=== PATIENT | male | born 1990 | race Caucasian/White ===

== ENCOUNTER 2021-02-10 19:43 | Inpatient (IN) | payer MEDICAID, SELFPAY ==
[2021-02-10 19:44] VITALS: BP 109/93; PULSE 96; RESP 18; TEMP 35.4; O2SAT 96; BMI 28.3
--- NOTE | 2021-02-10 20:43 | ED.VIS.GEN ---
History of Present Illness Chief Complaint: Substance Abuse Informant: Patient Onset: Month(s) Context: Sudden Onset Timing: Continuous Quality: Daily heroin and fentanyl use and alcohol use weekly Location: Not applicable Current Severity: Moderate Maximum Severity: Moderate Worsened by: Nothing Relieved by: Nothing Associated Symptoms: No withdrawal symptoms presently Narrative: Is a 30-year-old male with history of opiate dependency. He was in a rehab program last year. He states he was sober for 8 months. He resumed using. He snorts heroin and fentanyl. He also drinks 3 times a week. He states a normal day is 3 mixed drinks can have as much as a pint. He denies history of hepatitis or HIV. He does pick at his skin. He presently denies headache, visual, ocular auditory symptoms. No trouble with speech or swallowing. He denies cardiac respiratory symptoms. He denies abdominal pain, nausea, vomiting or diarrhea. He states he last used this afternoon at 1500. Prior similar symptoms: Yes Recent Illness/Hospitalization: No - Past Medical History (1) Opiate dependence Status: Acute (2) Alcohol use Status: Acute Past Medical History - Allergies and Home Meds Allergies/Adverse Reactions: Allergies No Known Allergies Allergy (Verified 02/10/21 19:45) Prior records reviewed: No Surgical History: no surgical history Lives: Alone Smoking Status: Current every day smoker Alcohol: Heavy Drugs: Heroin Review of Systems General: Denies: Chills, Fever, Sweats Eyes: Denies: Visual changes - bilaterally, Diplopia ENT: Denies: Rhinorrhea, Sore throat Cardiovascular: Denies: Chest pain, Palpitations Respiratory: Denies: Dyspnea, Cough, Dyspnea on exertion Gastrointestinal: Denies: Abdominal pain, Nausea, Vomiting, Diarrhea, Melena, Hematochezia Genitourinary: Denies: Dysuria, Hematuria, Frequency Musculoskeletal: Denies: Back pain, Extremity Pain Skin: Reports: Rash, Wounds - Due to picking his skin. Neurological: Denies: Headache, Weakness, Numbness Psych: Reports: Depression. Denies: Suicidal thoughts Allergy: Denies: Uticaria, Swelling of the mouth Physical Exam Vital Signs/Narrative: Vital Signs Temp Pulse Resp BP Pulse Ox 02/10/21 19:44 95.8 F L 96 18 109/93 H 96 Inital Vital Signs reviewed: Yes General: Well nourished, Well developed, No Acute Distress Head: Normocephalic, Atraumatic Eyes: Perrl, EOMI. Negative for: Pale conjunctiva ENT: Moist mucous membranes, No rhinorrhea Neck: Supple, Nontender, No lymphadenopathy, No JVD Cardiovascular: Regular rate, Regular rhythm, No murmurs, Normal S1, Normal S2 Respiratory: No distress, CTA bilaterally, Chest nontender Abdomen: Soft, Nontender, Nondistended, Normal bowel sounds Back: Nontender, Normal Inspection Extremities: Nontender, No edema Skin: Normal color, Rash - Pickers syndrome Neurological: Alert, Oriented x3, Cranial nerves II-XII grossly intact, Normal Strength, Normal Sensation Psychological: Depressed Diagnostic/Tx/Re-eval - Medical Decision Making Labs were obtained for admission for detox. The case was discussed with the admitting hospitalist Dr. Sarahi Aguila. She will follow the lab results. Full admit [facility] ED Disposition - Plan for ED Patient: Disposition: [facility] Care [facility] Diagnosis: Heroin use disorder, moderate, dependence, Alcohol abuse
--- NOTE | 2021-02-10 21:11 | ED.RN ---
CALLED 180 TO ADVISE OF A RAMP ADMIT
[2021-02-10 21:26] LABS: Amphetamine Urine VISTA POSITIVE (<1000 ng/mL); Barbiturate Urine VISTA NEGATIVE (< 200 ng/mL); Benzodiazepine Urine VISTA NEGATIVE (< 200 ng/mL); Cocaine Urine VISTA NEGATIVE (< 300 ng/mL); Ecstacy Urine VISTA POSITIVE (< 500 ng/mL); Methadone Urine VISTA NEGATIVE (< 300 ng/mL); PCP Urine VISTA NEGATIVE (< 25 ng/mL); THC Urine VISTA POSITIVE (< 50 ng/mL); Vista UDS pH Range 5
[2021-02-10 21:31] LABS: AST(SGOT) 38 U/L (15-37); Alanine Aminotransfer ALT/SGPT 59 U/L (16-61); Albumin, Serum 3.5 g/dL (3.2-5.0); Alkaline Phosphatase 97 U/L (45-117); Anion Gap 5 (5-15); BUN 22 mg/dL (7-18); BUN/Creat Ratio 24.1 RATIO (10-20); Calcium,Total 8.1 mg/dL (8.5-10.1); Chloride 103 mmol/L (98-107); Creatinine, Serum 0.91 mg/dL (0.70-1.30); EST Glomerular Filtration Rate 102 mL/min (>60); Est Glom Filt Rate - Afr Amer 123 mL/min (>60); Estimated Creatinine Clearance 116.54 ml/min; Globulin 3.5 g/dL (2.2-4.2); Glucose 112 mg/dL (74-106); Potassium 3.5 mmol/L (3.5-5.1); Sodium Level 137 mmol/L (136-145)
--- NOTE | 2021-02-10 21:34 | PCM.HP.STD ---
Problem List (1) Opiate dependence Status: Acute (2) Bipolar disorder Status: Chronic (3) Tobacco abuse Status: Chronic (4) Alcohol abuse Status: Chronic History of Present Illness Date of Admission: 02/10/21 Chief Complaint: Desire for detoxification from alcohol and opioids The patient is a 30 year old M presents today with desire to detox from heroin and alcohol. Patient states that he typically uses heroin 1 to 2 g a day but also occasionally uses meth. Patient reports that he is not a daily drinker but he does drink 3 to 4 days a week up to a pint of liquor. Patient is also a 1 pack/day smoker. Patient denies IV drug use stating that he snorts heroin. Patient reports his last heroin use at approximately 3 PM today. Patient denies fever, chills, shortness of breath, chest pain. Patient reports feeling depressed patient denies other medical history. Past Medical History Past Medical History (Chronic Problems): Chronic Problems Alcohol abuse (Chronic) Bipolar disorder (Chronic) Tobacco abuse (Chronic) Allergies No Known Allergies Allergy (Verified 02/10/21 19:45) Home Medications: Ambulatory Orders Medication Instructions Recorded Duloxetine Hcl [Cymbalta] 60 mg PO DAILY 02/10/21 Lurasidone HCl [Latuda] 20 mg PO DAILY 02/10/21 Surgical History: no surgical history Psychiatric History: Bipolar Lives: Alone Smoking Status: Current every day smoker Alcohol: Heavy Drugs: Heroin - *Family History Maternal History Items: Hypertension Paternal History Items: Hypertension Review of Systems Constitutional: Reports: Fatigue. Denies: Chills, Fever, Weight Change HEENT: Denies: Head Aches, Sinus Congestion, Sinus Drainage Cardiovascular: Denies: Chest Pain, Palpitations Respiratory: Denies: Cough, Shortness of breath at rest, Sputum production Gastrointestinal: Denies: Abdominal Pain, Nausea, Vomiting Genitourinary: Denies: Dysuria Musculoskeletal: Denies: Joint Pain, Joint Tenderness Skin: Reports: - - Multiple scabbed areas to face and arms and in various stages of healing.. Denies: Rash, Wounds Neurological: Denies: Numbness, Tingling, Focal weakness Psychiatric: Reports: Depression. Denies: Anxiety, Homicidal Ideations, Suicidal Ideations Hematologic/ Lymphatic: Denies: Easy Bruising, Easy Bleeding VTE Information - Inpt Only VTE Present on Admission: No VTE Mechan Device Prophylaxis: None VTE Pharm Prophylaxis ordered?: No Patient Problems: Active and Suspected Problems Opiate dependence (Acute) Heroin use disorder, moderate, dependence (Acute) - Physical Exam Vitals/I&O's: Vital Signs Temp Pulse Resp BP Pulse Ox 95.8 F L 96 18 109/93 H 96 02/10/21 19:44 02/10/21 19:44 02/10/21 19:44 02/10/21 19:44 02/10/21 19:44 Oxygen Delivery Method Room Air Weight: 192 lb 0.362 oz Body Mass Index (BMI) 28.3 General: Alert, Oriented x3, Lethargic HEENT: Atraumatic, PERRLA, EOMI, Normocephalic Neck: Supple, No JVD, Negative Carotid Bruits Lungs: Clear to auscultation, Normal air movement Cardiovascular: Regular rate, Regular Rhythm, Normal S1, Normal S2, No murmurs Abdomen: Bowel Sounds Present, Soft, Non Tender Extremities: No edema, Capillary Refill Less than 3 Seconds Skin: No rashes, Ulcer/ Wound - Small scabbed areas to face in various stages of healing Musculoskeletal: No Tenderness to Palpation of Joints or Extremities Neurological: Cranial nerves II-XII grossly intact Psych/Mental Status: Flat Affect Laboratory Results 02/10/21 20:52: Urine Opiates Screen NEGATIVE, Urine Methadone Screen NEGATIVE, Ur Barbiturates Screen NEGATIVE, Ur Phencyclidine Scrn NEGATIVE, Ur Amphetamines Screen POSITIVE H, U Methamphetamin-MDMA POSITIVE H, U Benzodiazepines Scrn NEGATIVE, Urine Cocaine Screen NEGATIVE, U Cannabinoids Screen POSITIVE H, Ur Drug Screen Comment 02/10/21 21:02: Sodium 137, Potassium 3.5, Chloride 103, Carbon Dioxide 29.0, Anion Gap 5, BUN 22 H, Creatinine 0.91, Estim Creat Clear Calc 116.54, Est GFR (MDRD) Af Amer 123, Est GFR (MDRD) Non-Af 102, BUN/Creatinine Ratio 24.1 H, Glucose 112 H, Calcium 8.1 L, Total Bilirubin 0.50, AST 38 H, ALT 59, Alkaline Phosphatase 97, Total Protein 7.0, Albumin 3.5, Globulin 3.5, Albumin/Globulin Ratio 1.0 02/10/21 21:02: Ethyl Alcohol Pending Assessment/Plan All Active Problems Opiate dependence (Acute) Heroin use disorder, moderate, dependence (Acute) 1. Opioid and alcohol abuse-desire for detoxification -Will initiate patient on buprenorphine and phenobarbital taper. -Supportive medications also ordered to assist with symptoms of withdrawal. -Admit to [facility] as part of RAMP detoxification program -Due to chronic alcohol use will check magnesium and phosphorus level -Thiamine, folic acid, and multivitamin ordered due to chronic alcohol use 2. Bipolar disorder -Untreated, [employer] consulted 3. Tobacco abuse -1 pack/day smoker -NicoDerm transdermal patch ordered daily DVT prophylaxis-not indicated This patient was seen by Suzanne Dye NP-C under the supervision of Dr. Aguila
[2021-02-10 22:13] VITALS: BP 109/93; PULSE 96; RESP 18; TEMP 35.4; O2SAT 96
[2021-02-10 22:26] VITALS: BP 102/59; PULSE 81; RESP 18; TEMP 36.5; O2SAT 99
[2021-02-10 22:27] VITALS: BMI 28.4
[2021-02-10 22:38] VITALS: BMI 28.4
[2021-02-10 22:38] LABS: Magnesium 2.5 mg/dL (1.6-2.6)
[2021-02-10] MEDS: Lactated Ringers 1,000 ML 125 ML IV (23:00)
[2021-02-10] MEDS: Ondansetron 8 MG Tablet PO (23:03)
[2021-02-10] MEDS: Ibuprofen 600 MG Tablet PO (23:03)
[2021-02-10] MEDS: Phenobarbital 32.4 MG Tablet 97.2 MG PO (23:04)
[2021-02-10] MEDS: traZODone 100 MG Tablet PO (23:04)
[2021-02-10] MEDS: Methocarbamol 750 MG Tablet 1500 MG PO (23:04)
[2021-02-10] MEDS: hydrOXYzine PAM 25 MG Capsule 50 MG PO (23:05)
[2021-02-10 23:09] LABS: HIV - WCH Non-Reactive (Nonreactive)
[2021-02-11 02:45] VITALS: BP 96/60; PULSE 88; RESP 16; TEMP 37; O2SAT 96
[2021-02-11] MEDS: Phenobarbital 32.4 MG Tablet 97.2 MG PO ×4 (02:54→16:00)
[2021-02-11 06:17] VITALS: BP 118/76; PULSE 85; RESP 16; TEMP 36.7; O2SAT 94
[2021-02-11] MEDS: Dicyclomine 10 MG Capsule 20 MG PO ×2 (06:36→16:00)
[2021-02-11] MEDS: Methocarbamol 750 MG Tablet 1500 MG PO ×2 (06:36→16:01)
[2021-02-11] MEDS: hydrOXYzine PAM 25 MG Capsule 50 MG PO ×2 (06:36→16:00)
[2021-02-11] MEDS: Buprenorphine HCl 2 MG TAB.SUBL SL ×3 (06:36→21:33)
[2021-02-11 07:07] VITALS: O2SAT 95
[2021-02-11 07:11] LABS: Absolute Lymphocyte Count 0.97 X10^3/uL (0.83-4.51); Absolute Neutrophil Count 2.5 X10^3/uL (2.0-7.7); Basophil# 0.03 X10^3/uL; Basophil% 0.6 % (0-1); Eosinophil# 0.34 X10^3/uL; Eosinophils% 7.4 % (0-5); Hematocrit 39.5 % (40-54); Hemoglobin 12.8 g/dL (13.0-16.5); Lymphocyte # 0.97 X10^3/ul (4.0); Mean Corp Hgb Conc 32.4 g/dL (32-36); Mean Corpuscular Hgb 31.1 pg (27.0-32.0); Mean Corpuscular Volume 95.9 fL (80-94); Mean Platelet Vol. 8.4 fl (6.2-12.0); Monocyte# 0.76 X10^3/uL; Monocyte% 16.5 % (0-10); NRBC Flagged by Analyzer 0 % (0-5); Neutrophil % 54.1 % (47-70); Platelet Count 295 K/mm3 (150-450); RBC Distribution Width CV 12.6 % (11.6-14.6); RBC Distribution Width SD 44.8 fl (35.1-43.9); Red Blood Count 4.12 M/mm3 (4.6-6.2); White Blood Count 4.6 K/mm3 (4.4-11.0)
[2021-02-11 07:44] LABS: ALB/GLOB Ratio 0.9 RATIO (0.9-2.4); AST(SGOT) 33 U/L (15-37); Alanine Aminotransfer ALT/SGPT 49 U/L (16-61); Albumin, Serum 3.1 g/dL (3.2-5.0); Alkaline Phosphatase 89 U/L (45-117); Anion Gap 6 (5-15); BUN 15 mg/dL (7-18); BUN/Creat Ratio 21.3 RATIO (10-20); Chloride 105 mmol/L (98-107); EST Glomerular Filtration Rate 137 mL/min (>60); Est Glom Filt Rate - Afr Amer 166 mL/min (>60); Globulin 3.3 g/dL (2.2-4.2); Glucose 89 mg/dL (74-106); Potassium 3.1 mmol/L (3.5-5.1); Protein, Total 6.4 g/dL (6.4-8.2); Sodium Level 140 mmol/L (136-145)
--- NOTE | 2021-02-11 09:35 | PCM.PROGNOTE ---
Patient Problems: Active and Suspected Problems Opiate dependence (Acute) Heroin use disorder, moderate, dependence (Acute) Subjective: Patient seen and examined. Drowsy during assessment. Denies significant withdrawal symptoms. - Physical Exam Vitals/I&O's: Vital Signs Temp Pulse Resp BP Pulse Ox 98.1 F 85 16 118/76 95 02/11/21 06:17 02/11/21 06:17 02/11/21 06:17 02/11/21 06:17 02/11/21 07:07 Oxygen Delivery Method Room Air Weight: 192 lb 7.417 oz Body Mass Index (BMI) 28.4 Intake and Output for Last 24 Hours 02/09/21 02/10/21 02/11/21 23:59 23:59 23:59 Intake Total 983.33 / 983.33 Balance 983.33 / 983.33 General: Cooperative, No apparent distress, - - Drowsy HEENT: Atraumatic, PERRLA, EOMI, Normocephalic Neck: Supple, No JVD, Negative Carotid Bruits Lungs: Clear to auscultation, Normal air movement Cardiovascular: Regular rate, No murmurs Abdomen: Bowel Sounds Present, Soft, Non Tender Extremities: No clubbing, No cyanosis, No edema, Capillary Refill Less than 3 Seconds Skin: - - Numerous scattered scabbed areas of various stages on face, thorax and extremities. Musculoskeletal: No Tenderness to Palpation of Joints or Extremities Neurological: Cranial nerves II-XII grossly intact, Neuro grossly intact Psych/Mental Status: Normal Affect, Appropriate Laboratory Results 02/10/21 20:52: Urine Opiates Screen NEGATIVE, Urine Methadone Screen NEGATIVE, Ur Barbiturates Screen NEGATIVE, Ur Phencyclidine Scrn NEGATIVE, Ur Amphetamines Screen POSITIVE H, U Methamphetamin-MDMA POSITIVE H, U Benzodiazepines Scrn NEGATIVE, Urine Cocaine Screen NEGATIVE, U Cannabinoids Screen POSITIVE H, Ur Drug Screen Comment 02/10/21 21:02: Sodium 137, Potassium 3.5, Chloride 103, Carbon Dioxide 29.0, Anion Gap 5, BUN 22 H, Creatinine 0.91, Estim Creat Clear Calc 116.54, Est GFR (MDRD) Af Amer 123, Est GFR (MDRD) Non-Af 102, BUN/Creatinine Ratio 24.1 H, Glucose 112 H, Calcium 8.1 L, Total Bilirubin 0.50, AST 38 H, ALT 59, Alkaline Phosphatase 97, Total Protein 7.0, Albumin 3.5, Globulin 3.5, Albumin/Globulin Ratio 1.0 02/10/21 21:02: Ethyl Alcohol 11.0 02/10/21 21:02: Phosphorus 4.0, Magnesium 2.5 02/10/21 21:02: Hepatitis A IgM Ab Pending, Hepatitis A Ab Total Pending, Hep Bs Antigen Pending, Hep B Core Total Ab Pending, Hep B Core IgM Ab Pending 02/10/21 21:02: HIV 1&2 Antibody Non-Reactive 02/11/21 06:35: WBC 4.6, RBC 4.12 L, Hgb 12.8 L, Hct 39.5 L, MCV 95.9 H, MCH 31.1, MCHC 32.4, RDW Std Deviation 44.8 H, RDW Coeff of Omar 12.6, Plt Count 295, MPV 8.4, Immature Gran % (Auto) 0.400, Neut % (Auto) 54.1, Lymph % (Auto) 21.0, [place] % (Auto) 16.5 H, Eos % (Auto) 7.4 H, Baso % (Auto) 0.6, Absolute Neuts (auto) 2.5, Absolute Lymphs (auto) 0.97, Nucleated RBC % 0 02/11/21 06:35: Sodium 140, Potassium 3.1 L, Chloride 105, Carbon Dioxide 29.0, Anion Gap 6, BUN 15, Creatinine 0.70, Estim Creat Clear Calc 151.50, Est GFR (MDRD) Af Amer 166, Est GFR (MDRD) Non-Af 137, BUN/Creatinine Ratio 21.3 H, Glucose 89, Calcium 8.0 L, Total Bilirubin 0.50, AST 33, ALT 49, Alkaline Phosphatase 89, Total Protein 6.4, Albumin 3.1 L, Globulin 3.3, Albumin/Globulin Ratio 0.9 Current Medications Acetaminophen (Acetaminophen 500 Mg Tablet) 500 mg PO Q4H PRN PRN PRN Reason: Temp > 100.4 F Al Hydroxide/Mg Hydroxide (Mag Hydrox/Al Hydrox/Simeth 30 Ml Udc) 30 ml PO Q6H PRN PRN PRN Reason: dyspesia Albuterol Sulfate (Albuterol 2.5 Mg/3 Ml Vial.Neb.) 2.5 mg INHALATION Q2H PRN PRN PRN Reason: Dyspnea, wheezing Bisacodyl (Bisacodyl 10 Mg Suppository) 10 mg RC DAILY PRN PRN PRN Reason: Constipation Buprenorphine HCl (Buprenorphine Hcl 2 Mg Tab.Subl) 4 mg SL Q8H JULI; Taper Stop: 02/14/21 06:29 Last Admin: 02/11/21 06:36 Dose: 4 mg Documented by: Clonidine (Clonidine Hcl 0.1 Mg Tablet) 0.1 mg PO Q8H PRN PRN PRN Reason: RESTLESSNESS Dicyclomine HCl (Dicyclomine 10 Mg Capsule) 20 mg PO Q6H PRN PRN PRN Reason: Abdominal Discomfort Last Admin: 02/11/21 06:36 Dose: 20 mg Documented by: Duloxetine HCl (Duloxetine Hcl 60 Mg Capsule) 60 mg PO DAILY [facility] Folic Acid (Folic Acid 1 Mg Tablet) 1 mg PO DAILY@0800 [facility] Gabapentin (Gabapentin 300 Mg Capsule) 300 mg PO Q8H PRN PRN PRN Reason: moderate to severe anxiety Hydralazine HCl (Hydralazine 20 Mg/Ml Vial) 10 mg IV Q4H PRN PRN PRN Reason: SBP > 160 Hydroxyzine Pamoate (Hydroxyzine Tarah 25 Mg Capsule) 50 mg PO Q6H PRN PRN PRN Reason: mild anxiety Last Admin: 02/11/21 06:36 Dose: 50 mg Documented by: Ibuprofen (Ibuprofen 600 Mg Tablet) 600 mg PO Q8H PRN PRN PRN Reason: PAIN Last Admin: 02/10/21 23:03 Dose: 600 mg Documented by: Loperamide HCl (Loperamide 2 Mg Capsule) 2 mg PO Q4H PRN PRN PRN Reason: LOOSE STOOLS Methocarbamol (Methocarbamol 750 Mg Tablet) 1,500 mg PO Q6H PRN PRN PRN Reason: MUSCLE SPASM Last Admin: 02/11/21 06:36 Dose: 1,500 mg Documented by: Multivitamins (Multivitamins,Therapeutic Tablet) 1 tablet [facility] Nicotine (Nicotine 21 Mg Patch) 21 mg TD DAILY JULI Last Admin: 02/10/21 23:21 Dose: 21 mg Documented by: Non-Formulary Medication (Lurasidone Hcl) 20 mg PO DAILY [facility] Nutritional Formula (Lactose Free) (Ensure Enlive 120 Ml Liquid) 120 ml PO 4X/DAY JULI Ondansetron HCl (Ondansetron 8 Mg Tablet) 8 mg PO Q8H PRN PRN PRN Reason: NAUSEA Last Admin: 02/10/21 23:03 Dose: 8 mg Documented by: Phenobarbital (Phenobarbital 32.4 Mg Tablet) 97.2 mg PO Q4H JULI; Taper Stop: 02/15/21 06:44 Last Admin: 02/11/21 06:22 Dose: 97.2 mg Documented by: Senna (Senna Tablet) 2 tablet PO QHS PRN PRN PRN Reason: Constipation Sodium Chloride (0.9% Saline Lock 10 Ml Syringe) 10 - 40 ml IV UD PRN PRN Reason: SALINE FLUSH Thiamine HCl (Thiamine Hydrochloride 100 Mg Tablet) 100 mg PO DAILYCM JULI Trazodone HCl (Trazodone 100 Mg Tablet) 100 mg PO QHS PRN PRN PRN Reason: INSOMNIA Last Admin: 02/10/21 23:04 Dose: 100 mg Documented by: Medical Necessity - Tobacco Use Smoking Status: Current every day smoker Tobacco Use: Cigarettes Assessment/Plan All Active Problems Opiate dependence (Acute) Heroin use disorder, moderate, dependence (Acute) 1. Acute alcohol withdrawal-medical stabilization per protocol. Phenobarbital taper. As needed regimen for somatic complaints. [facility] protocol. [employer] consult. 2. Acute opioid withdrawal-medical stabilization per protocol. Subutex taper. As needed regimen for somatic complaints. [employer] consult. 3. Polysubstance abuse-tox screen positive for amphetamines, methamphetamine, cannabinoids. 4. Tobacco dependence-encouraged cessation. Nicotine replacement patch. 5. Bipolar disorder-continue home medication regimen. DVT prophylaxis-low risk, not indicated This patient was seen by SARA Borges under the supervision of Dr. Banuelos.
--- NOTE | 2021-02-11 09:35 | ADDICTION ---
This mortgage underwriter attempted to meet with PT. PT refused to participate today, however, stated that he will engage tomorrow after he has time to rest. This mortgage underwriter will f/u on 02/12/21.
[2021-02-11] MEDS: DULoxetine Hcl 60 MG Capsule PO (11:31)
[2021-02-11] MEDS: Thiamine Hydrochloride 100 MG Tablet PO (11:31)
[2021-02-11] MEDS: Folic Acid 1 MG Tablet PO (11:32)
[2021-02-11] MEDS: Multivitamins,Therapeutic Tablet 1 TABLET PO (11:32)
[2021-02-11] MEDS: Potassium Chloride Oral Tablet 20 MEQ 40 MEQ PO (11:32)
[2021-02-11 11:33] VITALS: BP 127/91; PULSE 71; RESP 18; TEMP 36.9; O2SAT 100
[2021-02-11] MEDS: Ondansetron 8 MG Tablet PO (11:41)
[2021-02-11] MEDS: Gabapentin 300 MG Capsule PO (11:41)
[2021-02-11] MEDS: cloNIDine HCl 0.1 MG Tablet PO (11:41)
[2021-02-11] MEDS: Ibuprofen 600 MG Tablet PO (11:41)
[2021-02-11 15:48] VITALS: BP 124/62; PULSE 88; RESP 18; TEMP 36.5; O2SAT 99
[2021-02-11 21:27] VITALS: BP 94/56; PULSE 63; RESP 16; TEMP 36.7; O2SAT 97
[2021-02-12 03:27] VITALS: BP 109/75; PULSE 73; RESP 16; TEMP 36.9; O2SAT 100
[2021-02-12] MEDS: Ondansetron 8 MG Tablet PO (03:36)
[2021-02-12] MEDS: cloNIDine HCl 0.1 MG Tablet PO ×2 (03:36→20:36)
[2021-02-12] MEDS: Methocarbamol 750 MG Tablet 1500 MG PO (03:36)
[2021-02-12 05:57] LABS: Anion Gap 6 (5-15); BUN 12 mg/dL (7-18); BUN/Creat Ratio 15.9 RATIO (10-20); Calcium,Total 8.3 mg/dL (8.5-10.1); Chloride 108 mmol/L (98-107); Creatinine, Serum 0.76 mg/dL (0.70-1.30); EST Glomerular Filtration Rate 126 mL/min (>60); Est Glom Filt Rate - Afr Amer 153 mL/min (>60); Estimated Creatinine Clearance 139.54 ml/min; Glucose 111 mg/dL (74-106); Potassium 3.6 mmol/L (3.5-5.1); Sodium Level 142 mmol/L (136-145)
[2021-02-12] MEDS: Buprenorphine HCl 2 MG TAB.SUBL SL ×3 (06:04→22:47)
[2021-02-12 07:07] LABS: HEPATITIS B SURFACE AG Negative (Negative); Hepatitis A AB, Total Negative (Negative); Hepatitis A IgM Antibody Negative (Negative); Hepatitis B Core AB IgM Negative (Negative); Hepatitis B Core Ab Total Negative (Negative); Hepatitis C Ab <0.1 s/co ratio (0.0-0.9)
[2021-02-12 08:35] VITALS: BP 131/67; PULSE 62; RESP 18; TEMP 36.7; O2SAT 100
[2021-02-12] MEDS: Thiamine Hydrochloride 100 MG Tablet PO (09:39)
[2021-02-12] MEDS: DULoxetine Hcl 60 MG Capsule PO (09:39)
--- NOTE | 2021-02-12 10:09 | PN_ITS ---
Patient Problems: Active and Suspected Problems Opiate dependence (Acute) Heroin use disorder, moderate, dependence (Acute) Subjective: Patient seen and examined. More alert today. Denies significant withdrawal symptoms. Amendable to speak with [employer] today. - Physical Exam Vitals/I&O's: Vital Signs Temp Pulse Resp BP Pulse Ox 98.0 F 62 18 131/67 H 100 02/12/21 08:35 02/12/21 08:35 02/12/21 08:35 02/12/21 08:35 02/12/21 08:35 Oxygen Delivery Method Room Air Weight: 192 lb 7.417 oz Body Mass Index (BMI) 28.4 Intake and Output for Last 24 Hours 02/10/21 02/11/21 02/12/21 23:59 23:59 23:59 Intake Total 983.33 / 983.33 Balance 983.33 / 983.33 General: Alert, Oriented x3, Cooperative HEENT: Atraumatic, PERRLA, EOMI, Normocephalic Neck: Supple, No JVD, Negative Carotid Bruits Lungs: Clear to auscultation, Normal air movement Cardiovascular: Regular rate, No murmurs Abdomen: Bowel Sounds Present, Soft, Non Tender, Non-Distended Extremities: No clubbing, No cyanosis, No edema, Capillary Refill Less than 3 Seconds Skin: No rashes, No breakdown, - - Numerous scattered scabbed areas of various stages on face, thorax and extremities. Musculoskeletal: No Tenderness to Palpation of Joints or Extremities Neurological: Cranial nerves II-XII grossly intact, Neuro grossly intact Psych/Mental Status: Normal Affect, Appropriate Laboratory Results 02/12/21 05:24: Sodium 142, Potassium 3.6, Chloride 108 H, Carbon Dioxide 28.0, Anion Gap 6, BUN 12, Creatinine 0.76, Estim Creat Clear Calc 139.54, Est GFR (MDRD) Af Amer 153, Est GFR (MDRD) Non-Af 126, BUN/Creatinine Ratio 15.9, Glucose 111 H, Calcium 8.3 L Current Medications Acetaminophen (Acetaminophen 500 Mg Tablet) 500 mg PO Q4H PRN PRN PRN Reason: Temp > 100.4 F Buprenorphine HCl (Buprenorphine Hcl 2 Mg Tab.Subl) 2 mg SL Q8H JULI; Taper Stop: 02/14/21 06:29 Last Admin: 02/12/21 06:04 Dose: 2 mg Documented by: Clonidine (Clonidine Hcl 0.1 Mg Tablet) 0.1 mg PO Q8H PRN PRN PRN Reason: RESTLESSNESS Last Admin: 02/12/21 03:36 Dose: 0.1 mg Documented by: Duloxetine HCl (Duloxetine Hcl 60 Mg Capsule) 60 mg PO DAILY [facility] Last Admin: 02/12/21 09:39 Dose: 60 mg Documented by: Ibuprofen (Ibuprofen 600 Mg Tablet) 600 mg PO Q8H PRN PRN PRN Reason: PAIN Last Admin: 02/11/21 11:41 Dose: 600 mg Documented by: Loperamide HCl (Loperamide 2 Mg Capsule) 2 mg PO Q4H PRN PRN PRN Reason: LOOSE STOOLS Methocarbamol (Methocarbamol 750 Mg Tablet) 1,500 mg PO Q6H PRN PRN PRN Reason: MUSCLE SPASM Last Admin: 02/12/21 03:36 Dose: 1,500 mg Documented by: Nicotine (Nicotine 21 Mg Patch) 21 mg TD DAILY [facility] Last Admin: 02/12/21 09:39 Dose: 21 mg Documented by: Ondansetron HCl (Ondansetron 8 Mg Tablet) 8 mg PO Q8H PRN PRN PRN Reason: NAUSEA Last Admin: 02/12/21 03:36 Dose: 8 mg Documented by: Phenobarbital (Phenobarbital 16.2 Mg Tablet) 32.4 mg PO TID [facility] Last Admin: 02/12/21 06:04 Dose: 32.4 mg Documented by: Sodium Chloride (0.9% Saline Lock 10 Ml Syringe) 10 - 40 ml IV UD PRN PRN Reason: SALINE FLUSH Thiamine HCl ([facility]amine Hydrochloride 100 Mg Tablet) [facility] Last Admin: 02/12/21 09:39 Dose: 100 mg Documented by: Trazodone HCl (Trazodone 100 Mg Tablet) 100 mg PO QHS PRN PRN PRN Reason: INSOMNIA Last Admin: 02/10/21 23:04 Dose: 100 mg Documented by: Medical Necessity - Tobacco Use Smoking Status: Current every day smoker Tobacco Use: Cigarettes Assessment/Plan All Active Problems Opiate dependence (Acute) Heroin use disorder, moderate, dependence (Acute) 1. Acute alcohol withdrawal-medical stabilization per protocol. As needed regimen for somatic complaints. Phenobarb reduced to 32 mg twice daily due to previous drowsiness. [facility] protocol. [employer] consult. 2. Acute opioid withdrawal-medical stabilization per protocol. Subutex taper. As needed regimen for somatic complaints. [employer] consult. 3. Polysubstance abuse-tox screen positive for amphetamines, methamphetamine, cannabinoids. 4. Tobacco dependence-encouraged cessation. Nicotine replacement patch. 5. Bipolar disorder-continue home medication regimen. DVT prophylaxis-low risk, not indicated This patient was seen by SARA Borges under the supervision of Dr. Banuelos.
[2021-02-12 12:17] LABS: Hep B Surface Antibodies Reactive (.)
--- NOTE | 2021-02-12 12:36 | ADDICTION ---
This writer producer met with PT to complete ASAM, MSE, DUDIT assessments and to plan for d/c. PT A+Ox4 and participated appropriately. All assessments completed, faxed to [facility] and placed in PT's chart. PT requesting direct admit to [facility]. Referral made- PT to present to [facility] for assessment at 9:30am on 02/15/21. He will admit following assessment. [facility] to provide transportation.
[2021-02-12 14:13] VITALS: BP 115/71; PULSE 60; RESP 18; TEMP 36.8; O2SAT 98
--- NOTE | 2021-02-12 15:26 | CASEMGMT ---
Social Work Note SW updated by Elizabeth with [facility] that pt is currently homeless. SW in to speak with pt. SW introduced self and role at [facility]. Pt agreeable to taking housing resources and also states that [facility] will be assisting him with housing. Housing/Homeless resources provided. Essie Solorio [employer], PAPER REWINDER
[2021-02-12 15:29] VITALS: PULSE 90
[2021-02-12 20:30] VITALS: BP 115/71; PULSE 63; RESP 16; TEMP 36.8; O2SAT 94
[2021-02-12] MEDS: Ibuprofen 600 MG Tablet PO (20:36)
[2021-02-13 03:20] VITALS: BP 112/77; PULSE 60; RESP 16; TEMP 36.6; O2SAT 97
[2021-02-13] MEDS: Buprenorphine HCl 2 MG TAB.SUBL SL ×2 (05:54→18:17)
[2021-02-13 08:41] VITALS: O2SAT 95
--- NOTE | 2021-02-13 09:47 | PN_ITS ---
Patient Problems: Active and Suspected Problems Opiate dependence (Acute) Heroin use disorder, moderate, dependence (Acute) Subjective: Patient seen and examined. Denies withdrawal symptoms. Plan for discharge to inpatient treatment facility 02/15/2021. - Physical Exam Vitals/I&O's: Vital Signs Temp Pulse Resp BP Pulse Ox 97.8 F 60 16 112/77 95 02/13/21 03:20 02/13/21 03:20 02/13/21 03:20 02/13/21 03:20 02/13/21 08:41 Oxygen Delivery Method Room Air Weight: 192 lb 7.417 oz Body Mass Index (BMI) 28.4 Intake and Output for Last 24 Hours 02/11/21 02/12/21 02/13/21 23:59 23:59 23:59 Intake Total 983.33 / 983.33 Balance 983.33 / 983.33 General: Alert, Oriented x3, Cooperative HEENT: Atraumatic, PERRLA, EOMI, Normocephalic Neck: Supple, No JVD, Negative Carotid Bruits Lungs: Clear to auscultation, Normal air movement Cardiovascular: Regular rate, No murmurs Abdomen: Bowel Sounds Present, Soft, Non Tender, Non-Distended Extremities: No clubbing, No cyanosis, No edema Skin: No rashes, No breakdown, - - Numerous scattered scabbed areas of various stages on face, thorax and extremities. Musculoskeletal: No Tenderness to Palpation of Joints or Extremities Neurological: Cranial nerves II-XII grossly intact, Neuro grossly intact Psych/Mental Status: Normal Affect, Appropriate Laboratory Results 02/10/21 21:02: Hepatitis A IgM Ab Negative, Hepatitis A Ab Total Negative, Hep Bs Antigen Negative, Hep B Core Total Ab Negative, Hep B Core IgM Ab Negative, Hepatitis C Ab Confirm <0.1, Hep C Confirm Com 1 Comment Current Medications Acetaminophen (Acetaminophen 500 Mg Tablet) 500 mg PO Q4H PRN PRN PRN Reason: Temp > 100.4 F Buprenorphine HCl (Buprenorphine Hcl 2 Mg Tab.Subl) 2 mg SL Q12H JULI; Taper Stop: 02/14/21 06:29 Last Admin: 02/13/21 05:54 Dose: 2 mg Documented by: Clonidine (Clonidine Hcl 0.1 Mg Tablet) 0.1 mg PO Q8H PRN PRN PRN Reason: RESTLESSNESS Last Admin: 02/12/21 20:36 Dose: 0.1 mg Documented by: Duloxetine HCl (Duloxetine Hcl 60 Mg Capsule) 60 mg PO DAILY [facility] Last Admin: 02/12/21 09:39 Dose: 60 mg Documented by: Ibuprofen (Ibuprofen 600 Mg Tablet) 600 mg PO Q8H PRN PRN PRN Reason: PAIN Last Admin: 02/12/21 20:36 Dose: 600 mg Documented by: Loperamide HCl (Loperamide 2 Mg Capsule) 2 mg PO Q4H PRN PRN PRN Reason: LOOSE STOOLS Methocarbamol (Methocarbamol 750 Mg Tablet) 1,500 mg PO Q6H PRN PRN PRN Reason: MUSCLE SPASM Last Admin: 02/12/21 03:36 Dose: 1,500 mg Documented by: Nicotine (Nicotine 21 Mg Patch) 21 mg TD DAILY [facility] Last Admin: 02/12/21 09:39 Dose: 21 mg Documented by: Ondansetron HCl (Ondansetron 8 Mg Tablet) 8 mg PO Q8H PRN PRN PRN Reason: NAUSEA Last Admin: 02/12/21 03:36 Dose: 8 mg Documented by: Phenobarbital (Phenobarbital 16.2 Mg Tablet) 32.4 mg PO BID [facility] Last Admin: 02/12/21 21:50 Dose: 32.4 mg Documented by: Sodium Chloride (0.9% Saline Lock 10 Ml Syringe) 10 - 40 ml IV UD PRN PRN Reason: SALINE FLUSH Thiamine HCl ([facility] Hydrochlor[facility] 100 Mg Tablet) [facility] Last Admin: 02/12/21 09:39 Dose: 100 mg Documented by: Trazodone HCl (Trazodone 100 Mg Tablet) 100 mg PO QHS PRN PRN PRN Reason: INSOMNIA Last Admin: 02/10/21 23:04 Dose: 100 mg Documented by: Medical Necessity - Tobacco Use Smoking Status: Current every day smoker Tobacco Use: Cigarettes Assessment/Plan All Active Problems Opiate dependence (Acute) Heroin use disorder, moderate, dependence (Acute) 1. Acute alcohol withdrawal-medical stabilization per protocol. As needed regimen for somatic complaints. Will DC phenobarb-no further withdrawal symptoms. CIWA protocol. [facility] consult. 2. Acute opioid withdrawal-medical stabilization per protocol. Subutex taper. As needed regimen for somatic complaints. [facility] consult. Plan for discharge to residential treatment facility 02/15/2021. 3. Polysubstance abuse-tox screen positive for amphetamines, methamphetamine, cannabinoids. 4. Tobacco dependence-encouraged cessation. Nicotine replacement patch. 5. Bipolar disorder-continue home medication regimen. DVT prophylaxis-low risk, not indicated This patient was seen by SARA Borges under the supervision of Dr. Banuelos.
[2021-02-13] MEDS: DULoxetine Hcl 60 MG Capsule PO (10:04)
[2021-02-13] MEDS: Thiamine Hydrochloride 100 MG Tablet PO (10:04)
[2021-02-13 10:09] VITALS: BP 92/51; PULSE 57; RESP 16; TEMP 36.6; O2SAT 98
[2021-02-13 14:36] VITALS: BP 93/57; PULSE 60; RESP 16; TEMP 36.8; O2SAT 100
[2021-02-13] MEDS: Ibuprofen 600 MG Tablet PO (18:17)
[2021-02-13 19:43] VITALS: BP 113/66; PULSE 62; RESP 16; TEMP 36.8; O2SAT 97
[2021-02-14 02:13] VITALS: BP 113/64; PULSE 57; RESP 16; TEMP 36.8; O2SAT 99
[2021-02-14] MEDS: Ibuprofen 600 MG Tablet PO ×3 (02:17→23:17)
[2021-02-14 07:23] VITALS: O2SAT 97
[2021-02-14 08:34] VITALS: BP 111/69; PULSE 51; RESP 16; TEMP 36.8; O2SAT 100
[2021-02-14] MEDS: Acetaminophen 500 MG Tablet PO (08:39)
[2021-02-14 08:40] VITALS: PULSE 56
[2021-02-14] MEDS: Thiamine Hydrochloride 100 MG Tablet PO (08:40)
[2021-02-14] MEDS: DULoxetine Hcl 60 MG Capsule PO (10:38)
--- NOTE | 2021-02-14 12:24 | PCM.PROGNOTE ---
Patient Problems: Active and Suspected Problems Opiate dependence (Acute) Heroin use disorder, moderate, dependence (Acute) Subjective: Patient seen and examined. Denies new symptoms or complaints. Plan for discharge to residential treatment facility tomorrow. - Physical Exam Vitals/I&O's: Vital Signs Temp Pulse Resp BP Pulse Ox 98.3 F 56 L 16 111/69 100 02/14/21 08:34 02/14/21 08:40 02/14/21 08:34 02/14/21 08:34 02/14/21 08:34 Oxygen Delivery Method Room Air Weight: 192 lb 7.417 oz Body Mass Index (BMI) 28.4 Intake and Output for Last 24 Hours 02/12/21 02/13/21 02/14/21 23:59 23:59 23:59 Intake Total 250 / 250 Balance 250 / 250 General: Alert, Oriented x3, Cooperative HEENT: Atraumatic, PERRLA, EOMI, Normocephalic Neck: Supple, No JVD, Negative Carotid Bruits Lungs: Clear to auscultation, Normal air movement Cardiovascular: Regular rate, No murmurs Abdomen: Bowel Sounds Present, Soft, Non Tender, Non-Distended Extremities: No clubbing, No cyanosis, No edema, Capillary Refill Less than 3 Seconds Skin: No rashes, No breakdown, - - Numerous scattered scabbed areas of various stages on face, thorax and extremities. Musculoskeletal: No Tenderness to Palpation of Joints or Extremities Neurological: Cranial nerves II-XII grossly intact, Neuro grossly intact Psych/Mental Status: Normal Affect, Appropriate Current Medications Acetaminophen (Acetaminophen 500 Mg Tablet) 500 mg PO Q4H PRN PRN PRN Reason: Temp > 100.4 F Last Admin: 02/14/21 08:39 Dose: 500 mg Documented by: Clonidine (Clonidine Hcl 0.1 Mg Tablet) 0.1 mg PO Q8H PRN PRN PRN Reason: RESTLESSNESS Last Admin: 02/12/21 20:36 Dose: 0.1 mg Documented by: Duloxetine HCl (Duloxetine Hcl 60 Mg Capsule) 60 mg PO DAILY JULI Last Admin: 02/14/21 10:38 Dose: 60 mg Documented by: Ibuprofen (Ibuprofen 600 Mg Tablet) 600 mg PO Q8H PRN PRN PRN Reason: PAIN Last Admin: 02/14/21 02:17 Dose: 600 mg Documented by: Loperamide HCl (Loperamide 2 Mg Capsule) 2 mg PO Q4H PRN PRN PRN Reason: LOOSE STOOLS Methocarbamol (Methocarbamol 750 Mg Tablet) 1,500 mg PO Q6H PRN PRN PRN Reason: MUSCLE SPASM Last Admin: 02/12/21 03:36 Dose: 1,500 mg Documented by: Nicotine (Nicotine 21 Mg Patch) 21 mg TD DAILY [facility] Last Admin: 02/14/21 10:38 Dose: 21 mg Documented by: Ondansetron HCl (Ondansetron 8 Mg Tablet) 8 mg PO Q8H PRN PRN PRN Reason: NAUSEA Last Admin: 02/12/21 03:36 Dose: 8 mg Documented by: Sodium Chloride (0.9% Saline Lock 10 Ml Syringe) 10 - 40 ml IV UD PRN PRN Reason: SALINE FLUSH Thiamine HCl (Thiamine Hydrochloride 100 Mg Tablet) 100 mg PO DAILYCM [facility] Last Admin: 02/14/21 08:40 Dose: 100 mg Documented by: Trazodone HCl (Trazodone 100 Mg Tablet) 100 mg PO QHS PRN PRN PRN Reason: INSOMNIA Last Admin: 02/10/21 23:04 Dose: 100 mg Documented by: Medical Necessity - Tobacco Use Smoking Status: Current every day smoker Tobacco Use: Cigarettes Assessment/Plan All Active Problems Opiate dependence (Acute) Heroin use disorder, moderate, dependence (Acute) 1. Acute alcohol withdrawal-medical stabilization per protocol. As needed regimen for somatic complaints. DC phenobarb-no further withdrawal symptoms. CIWA protocol. [facility] consult. 2. Acute opioid withdrawal-medical stabilization per protocol. Subutex taper. As needed regimen for somatic complaints. [facility] consult. Plan for discharge to residential treatment facility 02/15/2021. 3. Polysubstance abuse-tox screen positive for amphetamines, methamphetamine, cannabinoids. 4. Tobacco dependence-encouraged cessation. Nicotine replacement patch. 5. Bipolar disorder-continue home medication regimen. DVT prophylaxis-low risk, not indicated This patient was seen by SARA Borges under the supervision of Dr. Banuelos.
[2021-02-14 14:46] VITALS: BP 118/75; PULSE 56; RESP 16; TEMP 36.7; O2SAT 100
[2021-02-14] MEDS: Methocarbamol 750 MG Tablet 1500 MG PO ×2 (14:50→23:17)
[2021-02-14] MEDS: Ondansetron 8 MG Tablet PO (14:50)
[2021-02-14] MEDS: cloNIDine HCl 0.1 MG Tablet PO ×2 (14:50→23:17)
[2021-02-14 20:18] VITALS: BP 113/65; PULSE 63; RESP 16; TEMP 37; O2SAT 100
[2021-02-14] MEDS: traZODone 100 MG Tablet PO (23:17)
[2021-02-15 02:30] VITALS: BP 98/51; PULSE 56; RESP 16; TEMP 36.7; O2SAT 99
[2021-02-15 07:33] VITALS: BP 127/78; PULSE 57; RESP 16; TEMP 36.6; O2SAT 100
[2021-02-15 07:39] VITALS: O2SAT 97
[2021-02-15] MEDS: Thiamine Hydrochloride 100 MG Tablet PO (07:43)
--- NOTE | 2021-02-15 08:51 | DCINST_ITS ---
- Discharge Diagnoses Current Active Problems: Current Active and Chronic Problems Opiate dependence (Acute) Heroin use disorder, moderate, dependence (Acute) Alcohol abuse (Chronic) Bipolar disorder (Chronic) Tobacco abuse (Chronic) You will use the following diet at home:: No restrictions Discharge Activity: Return to Normal Activity Allergies/Adverse Reactions: Allergies No Known Allergies Allergy (Verified 02/10/21 19:45) Medications to take at Discharge Duloxetine Hcl [Cymbalta] 60 mg PO DAILY MDD depression 02/10/21 Lurasidone HCl [Latuda] 20 mg PO DAILY 02/10/21 Primary Care Physician: Care Physician,No Primary [Primary Care Provider] - Test Results: Test results from this visit will be discussed in further detail at your follow- up appointment, if applicable. Please Follow Up With: [facility] When: 02/15/21 as scheduled Proposed Discharge Date: 02/15/21
--- NOTE | 2021-02-15 08:53 | DS.PCM_ITS ---
<Karolina Ken SERVICE COORDINATOR [facility] - Last Filed: 02/15/21 08:57> Discharge Date and Diagnosis - Problem List Patient Problems: Active and Suspected Problems Opiate dependence (Acute) Heroin use disorder, moderate, dependence (Acute) Date of Admission: 02/10/21 Date of Discharge: 02/15/21 - Primary Discharge Diagnosis Acute Problems: Active Problems 1. Acute alcohol withdrawal 2. Acute opioid withdrawal 3. Polysubstance abuse 4. Tobacco dependence 5. Bipolar disorder - Secondary Discharge Diagnosis Chronic Problems: Chronic Problems Alcohol abuse (Chronic) Bipolar disorder (Chronic) Tobacco abuse (Chronic) Hospital Course and Treatment [facility] Operations: None Procedures: None Summary of Care Provided: The patient is a 30 year old M admitted 02/10/2021 requesting detox from alcohol and opioids. 1. Acute alcohol withdrawal-medical stabilization per protocol. Phenobarbital taper completed. Discharge to residential treatment facility 02/15/2021. 2. Acute opioid withdrawal-medical stabilization per protocol. Subutex taper during admission. [facility] consult. Plan for discharge to residential treatment facility 02/15/2021. 3. Polysubstance abuse-tox screen positive for amphetamines, methamphetamine, cannabinoids. 4. Tobacco dependence-encouraged cessation. 5. Bipolar disorder-continue home medication regimen. General: Alert, Oriented x3, Cooperative HEENT: Atraumatic, PERRLA, EOMI, Normocephalic Neck: Supple, No JVD, Negative Carotid Bruits Lungs: Clear to auscultation, Normal air movement Cardiovascular: Regular rate, No murmurs Abdomen: Bowel Sounds Present, Soft, Non Tender, Non-Distended Extremities: No clubbing, No cyanosis, No edema, Capillary Refill Less than 3 Seconds Skin: No rashes, No breakdown, Numerous scattered scabbed areas of various stages on face, thorax and extremities. Musculoskeletal: No Tenderness to Palpation of Joints or Extremities Neurological: Cranial nerves II-XII grossly intact, Neuro grossly intact Psych/Mental Status: Normal Affect, Appropriate Patient seen and examined prior to discharge. Physical assessment as noted above. Patient is stable for discharge with follow up recommendations as noted above. This patient was seen by KAITLIN BorgesC under the supervision of Dr. Tolliver. Patient Problems: Active and Suspected Problems Opiate dependence (Acute) Heroin use disorder, moderate, dependence (Acute) - Physical Exam Vitals/I&O's: Vital Signs Temp Pulse Resp BP Pulse Ox 97.9 F 57 L 16 127/78 H 97 02/15/21 07:33 02/15/21 07:33 02/15/21 07:33 02/15/21 07:33 02/15/21 07:39 Oxygen Delivery Method Room Air Weight: 192 lb 7.417 oz Body Mass Index (BMI) 28.4 Intake and Output for Last 24 Hours 02/13/21 02/14/21 02/15/21 23:59 23:59 23:59 Intake Total 250 / 250 400 / 400 Balance 250 / 250 400 / 400 Current Medications Acetaminophen (Acetaminophen 500 Mg Tablet) 500 mg PO Q4H PRN PRN PRN Reason: Temp > 100.4 F Last Admin: 02/14/21 08:39 Dose: 500 mg Documented by: Clonidine (Clonidine Hcl 0.1 Mg Tablet) 0.1 mg PO Q8H PRN PRN PRN Reason: RESTLESSNESS Last Admin: 02/14/21 23:17 Dose: 0.1 mg Documented by: Duloxetine HCl (Duloxetine Hcl 60 Mg Capsule) 60 mg PO DAILY [facility] Last Admin: 02/14/21 10:38 Dose: 60 mg Documented by: Ibuprofen (Ibuprofen 600 Mg Tablet) 600 mg PO Q8H PRN PRN PRN Reason: PAIN Last Admin: 02/14/21 23:17 Dose: 600 mg Documented by: Loperamide HCl (Loperamide 2 Mg Capsule) 2 mg PO Q4H PRN PRN PRN Reason: LOOSE STOOLS Methocarbamol (Methocarbamol 750 Mg Tablet) 1,500 mg PO Q6H PRN PRN PRN Reason: MUSCLE SPASM Last Admin: 02/14/21 23:17 Dose: 1,500 mg Documented by: Nicotine (Nicotine 21 Mg Patch) 21 mg TD DAILY [facility] Last Admin: 02/14/21 10:38 Dose: 21 mg Documented by: Ondansetron HCl (Ondansetron 8 Mg Tablet) 8 mg PO Q8H PRN PRN PRN Reason: NAUSEA Last Admin: 02/14/21 14:50 Dose: 8 mg Documented by: Sodium Chloride (0.9% Saline Lock 10 Ml Syringe) 10 - 40 ml IV UD PRN PRN Reason: SALINE FLUSH Thiamine HCl ([facility] Hydro[facility] 100 Mg Tablet) [facility] Last Admin: 02/15/21 07:43 Dose: 100 mg Documented by: Trazodone HCl (Trazodone 100 Mg Tablet) 100 mg PO QHS PRN PRN PRN Reason: INSOMNIA Last Admin: 02/14/21 23:17 Dose: 100 mg Documented by: Discharge Diet: No Restrictions Discharge Activity: Return to Normal Activity Home Medications: Medications to take at Discharge Duloxetine Hcl [Cymbalta] 60 mg PO DAILY MDD depression 02/10/21 Lurasidone HCl [Latuda] 20 mg PO DAILY 02/10/21 Primary Care Physician: Care Physician,No Primary [Primary Care Provider] - Please Follow Up With: [facility] When: 02/15/21 as scheduled Disposition: Home Minutes spent on discharge:: 35 Patient Condition:: Stable Medical Necessity - Tobacco Use Smoking Status: Current every day smoker Tobacco Use: Cigarettes Meaningful Use Info Meaningful Use Diagnoses (Choose all that apply): None applicable <Aureliano Tolliver - Last Filed: 02/15/21 12:01> Discharge Date and Diagnosis - Primary Discharge Diagnosis Acute Problems: Active Problems Opiate dependence (Acute) Heroin use disorder, moderate, dependence (Acute) - Secondary Discharge Diagnosis Chronic Problems: Chronic Problems Alcohol abuse (Chronic) Bipolar disorder (Chronic) Tobacco abuse (Chronic) Hospital Course and Treatment Operations: None Procedures: None Summary of Care Provided: Patient seen and examined independently. Data reviewed. I agree with the above note by the nurse practitioner. The patient is a 30 year old M presents seeking treatment for opiate and alcohol withdrawal. He received a buprenorphine taper and phenobarbital taper. Course was uncomplicated. See by Addiction Medicine and patient would discharged to [facility] residential program today. [] - Physical Exam Vitals/I&O's: Vital Signs Temp Pulse Resp BP Pulse Ox 36.6 C 57 L 16 127/78 H 97 02/15/21 07:33 02/15/21 07:33 02/15/21 07:33 02/15/21 07:33 02/15/21 07:39 Oxygen Delivery Method Room Air Weight: 87.3 kg Body Mass Index (BMI) 28.4 Intake and Output for Last 24 Hours 02/13/21 02/14/21 02/15/21 23:59 23:59 23:59 Intake Total 250 / 250 400 / 400 Balance 250 / 250 400 / 400 General: Alert, No apparent distress HEENT: Atraumatic, Normocephalic Discharge Diet: No Restrictions Discharge Activity: Return to Normal Activity Disposition: Home Minutes spent on discharge:: 35 Patient Condition:: Stable Medical Necessity - Tobacco Use Smoking Status: Current every day smoker Tobacco Use: Cigarettes Meaningful Use Info Meaningful Use Diagnoses (Choose all that apply): None applicable Inpatient E&M: 78613 Disch Hosp
== END 2021-02-15 09:08 | disposition home or self-care (01) | DRG 773 ==
LOC: ED 21:12 → MS3 21:18
PROVIDERS: Nurse Practitioner Family; Admitting Provider Family Medicine; Emergency Provider Emergency Medicine
DX: F10.239 Alcohol dependence with withdrawal, unspecified (principal); Y90.0 Blood alcohol level of less than 20 mg/100 ml; F11.23 Opioid dependence with withdrawal; F15.10 Other stimulant abuse, uncomplicated; F12.10 Cannabis abuse, uncomplicated; F17.210 Nicotine dependence, cigarettes, uncomplicated; F31.9 Bipolar disorder, unspecified
CPT/HCPCS: 36415; 80048; 80053; 80307; 82077; 83735; 84100; 85025; 86703; 86704; 86705; 86706; 86708; 86709; 86803; 87340; 97802; 99283; J7120

== ENCOUNTER 2021-08-17 16:19 | Emergency (ER) | payer MEDICAID, SELFPAY ==
[2021-08-17 16:21] VITALS: BP 131/93; PULSE 105; RESP 16; TEMP 36.6; O2SAT 99; BMI 30.2
--- NOTE | 2021-08-17 18:18 | EX.ED.DYSGE1 ---
HPI History of Present Illness Chief Complaint: General Illness Detail of Chief Complaint: Respiratory symptoms and skin lesions Informant: patient Onset/Context/Timing Onset: Days Context: Sudden Onset Timing: Continuous Quality: Rhinorrhea, loss of appetite, cough and shortness of breath as well as skin Location: Respiratory and generalized Current Severity: Mild Maximum Severity: Moderate Worsened by: Dyspnea on exertion Relieved by: Nothing Associated Symptoms Associated Symptoms: Subjective fever Narrative Narrative: Patient is a 31-year-old male who presents to the emergency department because of respiratory symptoms and skin lesion. This started several days ago. He does report mild frontal headache. Denies double vision, blurred vision loss of vision. He also had nasal congestion and noted a blister on his nose. He apparently popped a blister in his nose and now has lesions that are on his extremities and torso. He states when he showers the first and scab over. He states they were filled with pus. He does report subjective fever and chills. He denies sore throat. Does report hoarse voice. He does report dyspnea and cough. Cough is nonproductive. He does report nausea without vomiting. He did have diarrhea. The diarrhea started 24 to 48 hours ago. He has not noted any blood or mucus in the diarrhea. He denies decreased urine output. He does report generalized weakness. Prior similar symptoms: No Recent Illness/Hospitalization: No PFSH PFS Medical History Alcohol abuse Arthritis Bipolar disorder Heroin use disorder, moderate, dependence History of kidney stones History of seizures Neuropathy Opiate dependence Tobacco abuse Home Medications duloxetine 60 mg PO DAILY MDD depression 02/10/21 [History Last Taken 02/09/21 10:00] lurasidone 20 mg PO DAILY 02/10/21 [History Last Taken 02/09/21 10:00] ibuprofen 800 mg tablet 800 mg PO BID tab 05/14/21 [History Last Taken Unknown] doxycycline monohydrate 100 mg PO BID #20 capsule 08/17/21 [Rx Last Taken Unknown] Allergy/AdvReac Type Severity Reaction Status Date / Time No Known Allergies Allergy Verified 08/17/21 16:20 Family History Other Alcoholism and drug addiction in family Anxiety and depression Arthritis Asthma CVA (cerebral vascular accident) Cancer Diabetes Myocardial infarction Social History (Updated 08/17/21 @ 18:[address] Richard Hinkle MD) household members: none Smoking Status: Current every day smoker tobacco type: cigarettes alcohol intake: former substance use type: former substance user what type of physical activity do you participate in: none ROS ROS ED Constitutional Constitutional ED: Reports chills, fever(s) and subjective; Denies sweats or weight loss Eyes Eyes: Denies blurry vision, change in vision or diplopia ENT ENT ED: Reports rhinorrhea and sore throat; Denies ear pain Cardiovascular Cardiovascular: Denies chest pain, orthopnea, palpitations, paroxysmal nocturnal dyspnea or racing heartbeat Respiratory/Chest Respiratory/Chest: Reports cough, dyspnea, dyspnea on exertion and sputum; Denies orthopnea or paroxysmal nocturnal dyspnea Gastrointestinal Gastrointestinal: Reports diarrhea and nausea; Denies abdominal pain or vomiting Genitourinary Genitourinary ED: Denies dysuria, hematuria or urinary frequency Musculoskeletal Musculoskeletal: Denies arthralgias, back pain, myalgias or neck pain Integumentary Reports rash; Denies abscess Neurologic Neurologic: Reports headache(s) and weakness Endocrine Endocrinology: Denies polydipsia, polyphagia or polyuria Allergic/Immunologic Allergic/Immunologic ED: Denies mouth swelling or urticaria EXAM Physical Exam Const Vital Signs: 08/17/21 16:21 08/17/21 18:26 Temperature 97.9 F Temperature Source Temporal Pulse Rate 105 H Respiratory Rate 16 Respiratory Pattern Normal Blood Pressure 131/93 H Blood Pressure Mean 105 Pulse Ox 99 Oxygen Delivery Method Room Air Positive well nourished, well developed and obese General Appearance ED: well developed Nutritional Appearance: obese HEENT HEENT Narrative: Head is atraumatic normocephalic. Ears normal. Posterior pharynx no erythema or exudate. Nares reveals clear drainage and evidence of a pustule near the opening of the left vestibule Eyes PERRL and EOMs intact bilaterally General Eye ED: Negative for pale conjunctiva or scleral icterus Neck no lymphadenopathy, supple and no JVD Chest Wall inspection of chest normal and palpation of chest normal Resp normal respiratory effort and clear to auscultation bilaterally Cardio regular rhythm, S1 normal heart sound, S2 normal heart sound and no murmurs Rate: tachycardic GI normal to inspection, nondistended, normoactive bowel sounds and non-tender Palpation: soft Back/Spine no CVA tenderness Cervical Spine: Negative for cervical spine tenderness Thoracic Spine / Upper Back: Negative for thoracic spinal tenderness or paraspinal muscle tenderness Extremity normal to inspection General Extremety ED: Negative for edema or tenderness General Extremity: Negative for edema Neuro oriented x3 and no sensory deficits noted Sensorium / Orientation: alert Motor Exam: strength 5/5 throughout Psych mental status grossly normal Skin Skin Narrative: Patient has pustular rash with eschar noted and mild erythema. The rash is generalized. Concerned this may represent MRSA. MDM MDM MDM Narrative Medical decision making narrative: Patient complaining of respiratory symptoms subjective fever will obtain Covid test. He has not been vaccinated. Blood work was obtained to assess white count, H&H and renal function. He does have a pustular rash and will require antibiotics. Suspect he will be able to be treated as an outpatient. With a normal chest x-ray, negative Covid test, there is no concern for Covid infection. Patient's white count is normal. Therefore patient be treated as an outpatient for his pustular rash with doxycycline. Lab Data Attestation: I reviewed the patient's lab results. Labs: Laboratory Results - last 24 hr 08/17/21 08/17/21 08/17/21 18:20 18:20 18:20 WBC 7.6 RBC 4.66 Hgb 15.0 Hct 42.7 MCV 91.6 MCH 32.2 H MCHC 35.1 RDW Std Deviation 42.0 RDW Coeff of Omar 12.7 Plt Count 360 MPV 8.1 Immature Gran % (Auto) 0.500 Neut % (Auto) 71.4 H Lymph % (Auto) 18.1 L Meeker % (Auto) 9.2 Eos % (Auto) 0.4 Baso % (Auto) 0.4 Absolute Neuts (auto) 5.4 Absolute Lymphs (auto) 1.37 Nucleated RBC % 0 Sodium 140 Potassium 3.3 L Chloride 102 Carbon Dioxide 30.0 Anion Gap 8 BUN 8 Creatinine 0.78 Estim Creat Clear Calc 134.70 Est GFR (MDRD) Af Amer 148 Est GFR (MDRD) Non-Af 122 BUN/Creatinine Ratio 10.3 Glucose 98 Lactic Acid 1.8 Calcium 9.0 Radiography Chest X-Ray - ED: 1 View, Read by ED Physician (X-ray was interpreted by me at 11/28/2003), Normal, Heart, Lungs, Mediastinum, Bony Structures and No Acute Disease Discharge Plan Triage Chief Complaint: General Illness ED Provider: Richard Hinkle Dx/Rx/DC Orders Clinical Impression: Acute upper respiratory infection, Pustular rash Prescriptions: New doxycycline monohydrate 100 MG capsule 100 mg PO BID Qty: 20 RF: 0 No Action ibuprofen 800 mg tablet 800 mg PO BID RF: 0 lurasidone 20 MG tablet 20 mg PO DAILY RF: 0 duloxetine 60 MG capsule 60 mg PO DAILY MDD depression RF: 0 Primary Care Provider: Care Physician,No Primary Referrals: Care Physician,No Primary [Primary Care Provider] - Disposition Disposition: Home, Self Care
[2021-08-17 18:30] LABS: Absolute Lymphocyte Count 1.37 X10^3/uL (0.83-4.51); Absolute Neutrophil Count 5.4 X10^3/uL (2.0-7.7); Basophil# 0.03 X10^3/uL; Basophil% 0.4 % (0-1); Eosinophil# 0.03 X10^3/uL; Eosinophils% 0.4 % (0-5); Hematocrit 42.7 % (40-54); Lymphocyte # 1.37 X10^3/ul (0.83-4.51); Lymphocyte % 18.1 % (19-41); Mean Corp Hgb Conc 35.1 g/dL (32-36); Mean Corpuscular Hgb 32.2 pg (27.0-32.0); Mean Corpuscular Volume 91.6 fL (80-94); Mean Platelet Vol. 8.1 fl (6.2-12.0); Monocyte% 9.2 % (0-10); NRBC Flagged by Analyzer 0 % (0-5); Neutrophil % 71.4 % (47-70); Platelet Count 360 K/mm3 (150-450); RBC Distribution Width CV 12.7 % (11.6-14.6); Red Blood Count 4.66 M/mm3 (4.6-6.2); White Blood Count 7.6 K/mm3 (4.4-11.0)
[2021-08-17 18:43] LABS: Anion Gap 8 (5-15); BUN 8 mg/dL (7-18); BUN/Creat Ratio 10.3 RATIO (10-20); Chloride 102 mmol/L (98-107); Creatinine, Serum 0.78 mg/dL (0.70-1.30); EST Glomerular Filtration Rate 122 mL/min (>60); Est Glom Filt Rate - Afr Amer 148 mL/min (>60); Glucose 98 mg/dL (74-106); Potassium 3.3 mmol/L (3.5-5.1); Sodium Level 140 mmol/L (136-145)
--- NOTE | 2021-08-17 18:43 | RAD_ITS ---
EXAM: XR CHEST, 1 VIEW CLINICAL INDICATION: Cough, shortness of breath TECHNIQUE: Frontal view of the chest. This report was created using [employer] report generation technology. COMPARISON: None. FINDINGS: LUNGS AND PLEURAL SPACES: Unremarkable. No consolidation or edema. No pneumothorax. No effusion. HEART: Unremarkable. Cardiac silhouette not enlarged. MEDIASTINUM: Central airways and mediastinal contour are unremarkable. BONES/JOINTS: Unremarkable. SOFT TISSUES: Unremarkable. RAD/Chest 1 View (Portable) IMPRESSION: No radiographic evidence of acute cardiopulmonary disease. Electronically Signed: Denzel Long MD at 19:11 EDT , Service support ,
[2021-08-17 18:53] LABS: Lactic Acid 1.8 mmol/L (0.4-1.9)
[2021-08-17] MEDS: Doxycycline 100 MG CAPSULE PO (19:18)
[2021-08-17 19:23] VITALS: BP 123/89; PULSE 98; RESP 18; O2SAT 93
[2021-08-17 19:27] LABS: Probe Check PASS; Specimen Processing Control PASS
== END 2021-08-17 19:23 | disposition home or self-care (01) ==
PROVIDERS: Emergency Provider Emergency Medicine
DX: J06.9 Acute upper respiratory infection, unspecified (principal); L08.0 Pyoderma; M19.90 Unspecified osteoarthritis, unspecified site; F11.20 Opioid dependence, uncomplicated; F17.210 Nicotine dependence, cigarettes, uncomplicated; F31.9 Bipolar disorder, unspecified; E66.9 Obesity, unspecified; Z68.30 Body mass index [BMI] 30.0-30.9, adult; Z79.899 Other long term (current) drug therapy
CPT/HCPCS: 71045; 80048; 83605; 85025; 87426; 87635; 99285; U0005; A4216; U0003